=== PATIENT | female | born 1975 | race African-American/Black ===

== ENCOUNTER 2019-07-04 19:16 | Inpatient (IN) ==
[2019-07-04 19:58] LABS: Basophils # 0.1 10*3/uL (0.0-0.2); Basophils % 0.5 % (0.0-0.8); Eosinophils # 0.2 10*3/uL (0.0-0.87); Eosinophils % 1.9 % (0.00-10.9); Hematocrit 37.6 VOL% (35.7-47.0); Hemoglobin 12.1 GM/DL (12.0-16.0); Immature Granulocytes % 0.5 %; Immature Granulocytes Absolute 0.06 #; Lymphocytes % 35.2 % (21.3-54.2); Mean Corpuscular HGB Conc 32.2 GM/DL (32-36); Mean Corpuscular Volume 89.7 FL (87-102); Mean Platelet Volume 10.4 FL (9.6-12.0); Monocytes % 7.7 % (1.7-12.7); Neutrophils % 54.2 % (38.7-73.9); Platelet Count 286 T/CUMM (130-400); Red Blood Count 4.19 MC/CUMM (3.8-5.5); White Blood Count 11.3 T/CUMM (4-12)
[2019-07-04 20:11] LABS: Alanine Aminotransferase 14 U/L (13-56); Albumin 3.1 G/DL (3.4-5.0); Alkaline Phosphatase 91 U/L (45-117); Aspartate Amino Transferase 13 U/L (0-37); Bilirubin,Total < 0.39 MG/DL (0.2-1.0); Blood Urea Nitrogen 12 MG/DL (7-18); Calcium 8.6 MG/DL (8.5-10.1); Estimated Glom Filtration Rate 125 ML/MIN; Glucose 90 MG/DL (74-106); Osmolality,Calculated 278.4 MOS/KG (273-304); Total Protein 7.4 G/DL (6.4-8.3); Troponin I < 0.015 NG/ML (0.00-0.045)
[2019-07-04] MEDS ORDERED: POTASSIUM CHLORIDE 20 MEQ/15 ML UDCUP PO ONE (21:11)
[2019-07-04 22:38] LABS: Barbiturates Screen,Urine Negative (Negative); Benzodiazepines Screen,Urine Negative (Negative); Cannabinoid Screen,Urine Negative (Negative); Opiate Screen,Urine Negative (Negative); Phencyclidine Screen,Urine Negative (Negative)
[2019-07-04 22:40] LABS: Apearance,Urine CLEAR (Clear); Urine Color Yellow (Yellow)
[2019-07-04 22:41] LABS: Bilirubin,Urine Negative (Negative); Blood, Urine Negative (Negative); Glucose,Urine (UA) Negative (Negative); Ketones,Urine Negative (Negative); Mucus,Urine Occasional /LPF (Occasional); Nitrite,Urine Negative (Negative); Protein,Urine Negative; RBC,Urine 1 /HPF (0-4); Squamous Epithelial Cell,Urine Occasional /HPF (0-10); Urine Specific Gravity 1.019 (1.001-1.035); Urine Urobilinogen < 2.0 EU/DL (0.2-1.0); WBC,Urine 1 /HPF (0-6)
[2019-07-05] MEDS ORDERED: ACETAMINOPHEN 325 MG TABLET PO PRN (01:09)
[2019-07-05] MEDS: ONDANSETRON 4 MG/2 ML VIAL IV PRN (01:55)
[2019-07-05 02:48] LABS: Basophils # 0.1 10*3/uL (0.0-0.2); Basophils % 0.4 % (0.0-0.8); Eosinophils # 0.2 10*3/uL (0.0-0.87); Hematocrit 38.5 VOL% (35.7-47.0); Hemoglobin 12.4 GM/DL (12.0-16.0); Immature Granulocytes % 0.4 %; Immature Granulocytes Absolute 0.05 #; Lymphocytes # 3.5 10*3/uL (1.4-4.0); Lymphocytes % 30.5 % (21.3-54.2); Mean Corpuscular HGB Conc 32.2 GM/DL (32-36); Mean Corpuscular Volume 90.4 FL (87-102); Mean Platelet Volume 10.3 FL (9.6-12.0); Monocytes % 5.6 % (1.7-12.7); Neutrophils % 61.1 % (38.7-73.9); Platelet Count 294 T/CUMM (130-400); Red Blood Count 4.26 MC/CUMM (3.8-5.5); Red Cell Distribution Width 15.3 % (9.3-17.3); White Blood Count 11.4 T/CUMM (4-12)
[2019-07-05 03:17] LABS: Calcium 8.7 MG/DL (8.5-10.1); Osmolality,Calculated 283.1 MOS/KG (273-304)
[2019-07-05 03:27] LABS: Risk Ratio 3.46; Thyroid Stimulating Hormone 4.21 uIU/ml (0.358-3.74)
[2019-07-05] MEDS: MORPHINE 4 MG/1 ML VIAL IV PRN ×2 (04:28→13:18)
[2019-07-05] MEDS: MONTELUKAST 10 MG TABLET PO SCH (08:33)
[2019-07-05] MEDS: CLOPIDOGREL 75 MG TABLET PO SCH (08:33)
[2019-07-05] MEDS: TOPIRAMATE 25 MG TABLET PO SCH ×2 (08:33→21:26)
[2019-07-05] MEDS: ASPIRIN EC 81 MG TABLET PO SCH (08:33)
[2019-07-05] MEDS: DESVENLAFAXINE 50 MG TABLET PO SCH (08:33)
[2019-07-05] MEDS: POTASSIUM CHLORIDE 10 MEQ TABLET PO SCH ×2 (08:33→21:27)
[2019-07-05] MEDS: PANTOPRAZOLE 40 MG TABLET PO SCH (08:35)
[2019-07-05] MEDS: TEMAZEPAM 15 MG CAPSULE PO SCH ×2 (09:52→21:32)
[2019-07-05] MEDS: NAPROXEN 500 MG TABLET PO PRN (09:55)
[2019-07-05] MEDS ORDERED: KETOROLAC 30 MG/1 ML VIAL IV ONE (10:32)
[2019-07-05] MEDS ORDERED: ROSUVASTATIN 20 MG TABLET PO SCH (21:00)
[2019-07-06] MEDS: ONDANSETRON 4 MG/2 ML VIAL IV PRN (00:31)
[2019-07-06] MEDS: MORPHINE 4 MG/1 ML VIAL IV PRN (00:32)
[2019-07-06] MEDS: DESVENLAFAXINE 50 MG TABLET PO SCH (08:42)
[2019-07-06] MEDS: MONTELUKAST 10 MG TABLET PO SCH (08:42)
[2019-07-06] MEDS: NAPROXEN 500 MG TABLET PO PRN (08:42)
[2019-07-06] MEDS: CLOPIDOGREL 75 MG TABLET PO SCH (08:42)
[2019-07-06] MEDS: ASPIRIN EC 81 MG TABLET PO SCH (08:42)
[2019-07-06] MEDS: TOPIRAMATE 25 MG TABLET PO SCH (08:42)
[2019-07-06] MEDS: POTASSIUM CHLORIDE 10 MEQ TABLET PO SCH (08:42)
[2019-07-06] MEDS: PANTOPRAZOLE 40 MG TABLET PO SCH (08:42)
[2019-07-06] MEDS ORDERED: hydrALAZINE 20 MG/1 ML VIAL IV PRN (13:22)
[2019-07-06 16:21] VITALS: BP 158/84
[2019-07-06] MEDS ORDERED: TEMAZEPAM 15 MG CAPSULE PO SCH (21:00)
== END 2019-07-06 17:10 | disposition home or self-care (01) | DRG 103 ==
LOC: EDUNIT# → EDBD → N.ED 19:16 → N.EDINP 07-05 01:09 → N.4E 07-05 02:36
PROVIDERS: ADMIT Internal Medicine Geriatric Medicine; ATTEND Internal Medicine Geriatric Medicine

== ENCOUNTER 2021-02-02 18:01 | Observation (INO) ==
[2021-02-02] MEDS ORDERED: ASPIRIN 325 MG TABLET PO STA (18:22)
[2021-02-02 18:35] LABS: Basophils # 0.1 10*3/uL (0.0-0.2); Basophils % 0.5 % (0.0-0.8); Eosinophils # 0.3 10*3/uL (0.0-0.87); Eosinophils % 2.4 % (0.00-10.9); Hematocrit 42.7 VOL% (35.7-47.0); Hemoglobin 13.5 GM/DL (12.0-16.0); Immature Granulocytes % 0.3 %; Immature Granulocytes Absolute 0.04 #; Lymphocytes # 5.8 10*3/uL (1.4-4.0); Lymphocytes % 42.9 % (21.3-54.2); Mean Corpuscular HGB Conc 31.6 GM/DL (32-36); Mean Corpuscular Volume 90.9 FL (87-102); Mean Platelet Volume 10.7 FL (9.6-12.0); Monocytes % 6.8 % (1.7-12.7); Neutrophils % 47.1 % (38.7-73.9); Platelet Count 349 T/CUMM (130-400); Red Cell Distribution Width 14.7 % (9.3-17.3); White Blood Count 13.5 T/CUMM (4-12)
[2021-02-02 18:55] LABS: Eosinophils 1 % (0-10); Hypochromasia Slight; Lymphocytes 44 % (20-55); Platelet Estimate Adequate; Reactive Lymphocytes Few; Segmented Neutrophils 49 % (50-85); Total Cells Counted 100
[2021-02-02 19:05] LABS: Alanine Aminotransferase 24 U/L (13-56); Albumin 3.5 G/DL (3.4-5.0); Alkaline Phosphatase 95 U/L (45-117); Aspartate Amino Transferase 24 U/L (0-37); Bilirubin,Total < 0.39 MG/DL (0.2-1.0); Blood Urea Nitrogen 12 MG/DL (7-18); Calcium 9.2 MG/DL (8.5-10.1); Carbon Dioxide 26 MMOL/L (21-32); Estimated Glom Filtration Rate 117 ML/MIN; Glucose 95 MG/DL (74-106); Osmolality,Calculated 282.1 MOS/KG (273-304); Potassium 3.4 MMOL/L (3.5-5.1); Sodium 142 MMOL/L (136-145); Total Protein 8.3 G/DL (6.4-8.2)
[2021-02-02] MEDS ORDERED: POTASSIUM CHLORIDE 20 MEQ TABLET PO STA (19:31)
[2021-02-02] MEDS ORDERED: MAGNESIUM SULF RIDER 2 GM/50 ML PREMIX IV STA (19:31)
[2021-02-02] MEDS ORDERED: KETOROLAC 30 MG/1 ML VIAL IV STA (20:48)
[2021-02-02] MEDS ORDERED: NITROGLYCERIN SL 0.4 MG TABLET SL ONE (20:52)
[2021-02-02] MEDS ORDERED: NITROGLYCERIN SL 0.4 MG TABLET SL STA (20:55)
[2021-02-02] MEDS ORDERED: DEXTROSE 50% 25 GM/50 ML VIAL IV PRN (21:37)
[2021-02-02] MEDS ORDERED: GLUCAGON 1 MG VIAL IM PRN (21:37)
[2021-02-02] MEDS ORDERED: ONDANSETRON 4 MG/2 ML VIAL IV PRN (21:37)
[2021-02-02] MEDS ORDERED: TEMAZEPAM 15 MG CAPSULE PO PRN (21:42)
[2021-02-02] MEDS ORDERED: CYCLOBENZAPRINE 10 MG TABLET PO PRN (21:42)
[2021-02-02] MEDS ORDERED: ENOXAPARIN 40 MG/0.4 ML SYRINGE SUBCUT SCH (22:00)
[2021-02-02] MEDS ORDERED: SUMAtriptan 6 MG/0.5 ML VIAL SUBCUT ONE (22:39)
[2021-02-02] MEDS: MORPHINE 4 MG/1 ML VIAL IV PRN (23:21)
[2021-02-03 08:19] LABS: Basophils # 0.1 10*3/uL (0.0-0.2); Basophils % 0.5 % (0.0-0.8); Eosinophils # 0.4 10*3/uL (0.0-0.87); Eosinophils % 3.3 % (0.00-10.9); Hematocrit 40.6 VOL% (35.7-47.0); Hemoglobin 12.9 GM/DL (12.0-16.0); Immature Granulocytes % 0.3 %; Immature Granulocytes Absolute 0.03 #; Lymphocytes # 4.1 10*3/uL (1.4-4.0); Lymphocytes % 38.3 % (21.3-54.2); Mean Corpuscular HGB Conc 31.8 GM/DL (32-36); Mean Corpuscular Volume 90.2 FL (87-102); Mean Platelet Volume 10.8 FL (9.6-12.0); Monocytes % 6.1 % (1.7-12.7); Neutrophils % 51.5 % (38.7-73.9); Platelet Count 311 T/CUMM (130-400); Red Cell Distribution Width 14.9 % (9.3-17.3); White Blood Count 10.8 T/CUMM (4-12)
[2021-02-03] MEDS: PANTOPRAZOLE 40 MG TABLET PO SCH (08:38)
[2021-02-03] MEDS: CLOPIDOGREL 75 MG TABLET PO SCH (08:39)
[2021-02-03 08:41] LABS: Alanine Aminotransferase 23 U/L (13-56); Albumin 3.5 G/DL (3.4-5.0); Alkaline Phosphatase 99 U/L (45-117); Aspartate Amino Transferase 23 U/L (0-37); Bilirubin,Total < 0.39 MG/DL (0.2-1.0); Blood Urea Nitrogen 12 MG/DL (7-18); Calcium 8.8 MG/DL (8.5-10.1); Carbon Dioxide 25 MMOL/L (21-32); Estimated Glom Filtration Rate 135 ML/MIN; Glucose 105 MG/DL (74-106); Osmolality,Calculated 278.4 MOS/KG (273-304); Potassium 3.6 MMOL/L (3.5-5.1); Sodium 140 MMOL/L (136-145); Total Protein 7.8 G/DL (6.4-8.2)
[2021-02-03 08:42] LABS: Risk Ratio 4.41
[2021-02-03] MEDS: MORPHINE 4 MG/1 ML VIAL IV PRN (08:57)
[2021-02-03] MEDS ORDERED: SUMAtriptan 6 MG/0.5 ML VIAL SUBCUT ONE (09:46)
[2021-02-03] MEDS: ENOXAPARIN 120 MG/0.8 ML SYRINGE SUBCUT SCH (10:49)
[2021-02-03] MEDS ORDERED: ZIPRASIDONE 20 MG/1 ML VIAL IM ONE (16:57)
[2021-02-03] MEDS ORDERED: ROSUVASTATIN 10 MG TABLET PO SCH (21:00)
[2021-02-03] MEDS ORDERED: FENOFIBRATE 160 MG TABLET PO SCH (21:00)
[2021-02-04] MEDS: ENOXAPARIN 120 MG/0.8 ML SYRINGE SUBCUT SCH (00:01)
[2021-02-04] MEDS: PANTOPRAZOLE 40 MG TABLET PO SCH (08:40)
[2021-02-04] MEDS: CLOPIDOGREL 75 MG TABLET PO SCH (08:41)
[2021-02-04] MEDS ORDERED: ASPIRIN EC 81 MG TABLET PO SCH (09:00)
[2021-02-04 11:38] VITALS: BP 159/93
[2021-02-04] MEDS ORDERED: APIXABAN 5 MG TABLET PO SCH (21:00)
[2021-02-05] MEDS ORDERED: ASPIRIN EC 81 MG TABLET PO SCH (09:00)
== END 2021-02-04 13:02 | disposition home or self-care (01) ==
LOC: N.ED 18:01 → N.EDINP 18:01 → N.TELES 21:59
PROVIDERS: ADMIT Emergency Medicine; ATTEND Emergency Medicine